=== PATIENT | male | born 1975 | race African-American/Black ===

== ENCOUNTER 2018-05-27 16:16 | Inpatient (IN) | payer SELFPAY ==
[2018-05-27 17:42] LABS: ADD MAN DIFF? NO
[2018-05-27] MEDS: LORAZEPAM 2 MG INJ IV (17:44)
[2018-05-27] MEDS: SOD CHLORIDE 0.9% 1,000 ML IV ×2 (17:44→21:11)
[2018-05-27 17:50] LABS: WHITE BLOOD COUNT 9.1 10^3/ul (4.8-10.8)
[2018-05-27 17:50] LABS: ABNORMAL IP MESSAGE 1; BASOPHILS % 0.4 % (0.0-2.0); HEMATOCRIT 42.4 % (42.0-52.0); HEMOGLOBIN 14.6 g/dl (14.0-18.0); LYMPHOCYTES # 0.5 10^3/ul (0.8-2.9); LYMPHOCYTES % 5.8 % (15.0-51.0); MEAN CORPUSCULAR HEMOGLOBIN 29.7 pg (29.0-33.0); MEAN CORPUSCULAR HGB CONC 34.4 g/dl (32.0-37.0); MEAN CORPUSCULAR VOLUME 86.4 fl (82.0-101.0); MEAN PLATELET VOLUME 9.7 fl (7.4-10.4); MONOCYTE # 0.8 10^3/ul (0.3-0.9); MONOCYTES % 8.4 % (0.0-11.0); NEUTROPHIL # 7.7 10^3/ul (1.6-7.5); PLATELET COUNT 175 10^3/UL (140-415); POSITIVE DIFF @See below; RED BLOOD COUNT 4.91 10^6/ul (4.70-6.10); RED CELL DISTRIBUTION WIDTH 14.1 % (11.5-14.5)
[2018-05-27 18:09] LABS: ALANINE AMINOTRANSFERASE 135 IU/L (13-69); ALBUMIN/GLOBULIN RATIO 0.96; ALKALINE PHOSPHATASE 87 IU/L (42-121); ANION GAP 20 (5-13); ASPARTATE AMINO TRANSFERASE 176 IU/L (15-46); BILIRUBIN,INDIRECT 0.8 mg/dl (0-1.1); BILIRUBIN,TOTAL 0.8 mg/dl (0.2-1.3); BLOOD UREA NITROGEN 9 mg/dl (7-20); CALCIUM 9.7 mg/dl (8.4-10.2); CARBON DIOXIDE 21 mmol/L (21-31); CHLORIDE 92 mmol/L (97-110); CREATININE 0.96 mg/dl (0.61-1.24); Estimated GFR > 60 mL/min (>60); GLUCOSE 152 mg/dl (70-220); POTASSIUM 3.8 mmol/L (3.5-5.1); SODIUM 133 mmol/L (135-144); TOTAL PROTEIN 10.2 g/dl (6.1-8.1)
[2018-05-27 18:28] LABS: TROPONIN-I < 0.012 ng/ml (0.000-0.120)
[2018-05-27 18:36] LABS: ETHANOL < 10.0 mg/dl
[2018-05-27] MEDS ORDERED: ACETAMINOPHEN 325 MG TAB PO (19:00)
[2018-05-27] MEDS ORDERED: LORAZEPAM 2 MG INJ IV (19:00)
[2018-05-27] MEDS: LORAZEPAM 1 MG TAB PO (19:53)
[2018-05-27 20:25] LABS: ADD UMIC YES; UR ASCORBIC ACID NEGATIVE (NEGATIVE); UR BACTERIA FEW /HPF (NONE SEEN); UR BILIRUBIN (Dip) NEGATIVE (NEGATIVE); UR BLOOD (Dip) 1+ mg/dL (NEGATIVE); UR CLARITY SLIGHTLY CLOUDY (CLEAR); UR COLOR YELLOW (YELLOW); UR GLUCOSE (Dip) NEGATIVE (NEGATIVE); UR KETONES (Dip) 1+ mg/dL (NEGATIVE); UR LEUKOCYTE ESTERASE (Dip) NEGATIVE Leu/ul (NEGATIVE); UR MUCUS FEW /HPF (NONE SEEN); UR NITRITE (Dip) NEGATIVE (NEGATIVE); UR RBC 1 /HPF (0-5); UR SPECIFIC GRAVITY (Dip) 1.016 (1.003-1.030); UR TOTAL PROTEIN (Dip) 3+ mg/dl (NEGATIVE); UR UROBILINOGEN (Dip) NEGATIVE (NEGATIVE); UR WBC 2 /HPF (0-5)
[2018-05-27] MEDS ORDERED: CHLORDIAZEPOXIDE 25 MG CAP PO (21:00)
[2018-05-27 21:17] LABS: AMPHETAMINE/METHAMPHETAMINE NEGATIVE (NEGATIVE); BARBITURATES NEGATIVE (NEGATIVE); BENZODIAZEPINES NEGATIVE (NEGATIVE); CANNABINOIDS NEGATIVE (NEGATIVE); COCAINE NEGATIVE (NEGATIVE); OPIATES NEGATIVE (NEGATIVE)
[2018-05-28] MEDS: ONDANSETRON 4 MG INJ IV ×3 (00:23→20:02)
[2018-05-28] MEDS: LORAZEPAM 1 MG TAB PO ×5 (00:55→20:02)
[2018-05-28] MEDS: MULTIVITAMINS 10 ML, THIAMINE 100 MG, FOLIC ACID 1 MG in SOD CHLORIDE 0.9% 1,000 ML IVPB (08:28)
[2018-05-28] MEDS: SOD CHLORIDE 0.9% 1,000 ML IV ×2 (08:29→17:19)
[2018-05-28 08:33] LABS: ADD MAN DIFF? NO
[2018-05-28 08:36] LABS: WHITE BLOOD COUNT 5.3 10^3/ul (4.8-10.8)
[2018-05-28 08:36] LABS: BASOPHILS % 0.2 % (0.0-2.0); EOSINOPHILS % 0.2 % (0.0-7.0); HEMATOCRIT 38.1 % (42.0-52.0); LYMPHOCYTES # 0.7 10^3/ul (0.8-2.9); LYMPHOCYTES % 12.8 % (15.0-51.0); MEAN CORPUSCULAR HGB CONC 34.1 g/dl (32.0-37.0); MEAN CORPUSCULAR VOLUME 87.8 fl (82.0-101.0); MEAN PLATELET VOLUME 10.5 fl (7.4-10.4); MONOCYTE # 0.5 10^3/ul (0.3-0.9); MONOCYTES % 9.8 % (0.0-11.0); NEUTROPHIL # 4.1 10^3/ul (1.6-7.5); NEUTROPHILS % 76.6 % (39.0-77.0); PLATELET COUNT 152 10^3/UL (140-415); RED BLOOD COUNT 4.34 10^6/ul (4.70-6.10); RED CELL DISTRIBUTION WIDTH 14.2 % (11.5-14.5)
[2018-05-28 09:11] LABS: ALANINE AMINOTRANSFERASE 126 IU/L (13-69); ALBUMIN 4.4 g/dl (3.3-4.9); ALBUMIN/GLOBULIN RATIO 1.15; ALKALINE PHOSPHATASE 62 IU/L (42-121); ANION GAP 13 (5-13); ASPARTATE AMINO TRANSFERASE 213 IU/L (15-46); BILIRUBIN,INDIRECT 0.8 mg/dl (0-1.1); BILIRUBIN,TOTAL 0.8 mg/dl (0.2-1.3); BLOOD UREA NITROGEN 9 mg/dl (7-20); CARBON DIOXIDE 25 mmol/L (21-31); CHLORIDE 97 mmol/L (97-110); CREATININE 0.95 mg/dl (0.61-1.24); Estimated GFR > 60 mL/min (>60); GLUCOSE 104 mg/dl (70-220); POTASSIUM 3.8 mmol/L (3.5-5.1); SODIUM 135 mmol/L (135-144); TOTAL PROTEIN 8.2 g/dl (6.1-8.1)
[2018-05-28] MEDS: INFLUENZA VIRUS VACCINE 0.5 ML (DISPENSING) IM* (10:24)
[2018-05-28] MEDS: THIAMINE 100 MG TAB PO (12:30)
[2018-05-28] MEDS: LORAZEPAM 2 MG INJ IV (16:46)
[2018-05-29] MEDS: GUAIFENESIN/CODEINE 5ML CUP PO ×2 (01:03→20:35)
[2018-05-29] MEDS: SOD CHLORIDE 0.9% 1,000 ML IV ×2 (03:27→15:31)
[2018-05-29 05:15] LABS: ADD MAN DIFF? NO
[2018-05-29 05:20] LABS: WHITE BLOOD COUNT 5.6 10^3/ul (4.8-10.8)
[2018-05-29 05:20] LABS: BASOPHILS % 0.4 % (0.0-2.0); EOSINOPHILS % 0.5 % (0.0-7.0); HEMATOCRIT 35.8 % (42.0-52.0); HEMOGLOBIN 12.3 g/dl (14.0-18.0); LYMPHOCYTES # 0.8 10^3/ul (0.8-2.9); LYMPHOCYTES % 13.4 % (15.0-51.0); MEAN CORPUSCULAR HEMOGLOBIN 30.4 pg (29.0-33.0); MEAN CORPUSCULAR HGB CONC 34.4 g/dl (32.0-37.0); MEAN CORPUSCULAR VOLUME 88.6 fl (82.0-101.0); MEAN PLATELET VOLUME 10.2 fl (7.4-10.4); MONOCYTE # 0.3 10^3/ul (0.3-0.9); MONOCYTES % 4.5 % (0.0-11.0); NEUTROPHIL # 4.6 10^3/ul (1.6-7.5); PLATELET COUNT 122 10^3/UL (140-415); RED BLOOD COUNT 4.04 10^6/ul (4.70-6.10); RED CELL DISTRIBUTION WIDTH 14.3 % (11.5-14.5)
[2018-05-29 05:29] LABS: HEMOGLOBIN A1C 5.4 % (0-5.9)
[2018-05-29 05:44] LABS: ANION GAP 11 (5-13); BLOOD UREA NITROGEN 7 mg/dl (7-20); CALCIUM 8.5 mg/dl (8.4-10.2); CARBON DIOXIDE 24 mmol/L (21-31); CHLORIDE 103 mmol/L (97-110); CREATININE 0.91 mg/dl (0.61-1.24); Estimated GFR > 60 mL/min (>60); GLUCOSE 92 mg/dl (70-220); MAGNESIUM 1.5 mg/dl (1.7-2.5); PHOSPHORUS 3.8 mg/dl (2.5-4.9); POTASSIUM 3.5 mmol/L (3.5-5.1); SODIUM 138 mmol/L (135-144)
[2018-05-29 05:50] LABS: TROPONIN-I < 0.012 ng/ml (0.000-0.120)
[2018-05-29 05:58] LABS: INR 0.99; PROTIME 13.2 Sec (11.9-14.9)
[2018-05-29] MEDS: THIAMINE 100 MG TAB PO (07:11)
[2018-05-29] MEDS: LORAZEPAM 1 MG TAB PO ×3 (08:09→20:15)
[2018-05-29] MEDS: FAMOTIDINE 20 MG TAB PO (08:10)
[2018-05-29] MEDS: MULTIVITAMINS 10 ML, THIAMINE 100 MG, FOLIC ACID 1 MG in SOD CHLORIDE 0.9% 1,000 ML IVPB (08:10)
[2018-05-29] MEDS ORDERED: LORAZEPAM 2 MG INJ IV (11:00)
[2018-05-29] MEDS: CHLORDIAZEPOXIDE 25 MG CAP PO ×3 (11:32→20:26)
[2018-05-29] MEDS: MAGNESIUM SULFATE 3 GM in DEXTROSE 5% 100 ML IVPB (13:07)
[2018-05-30] MEDS: CHLORDIAZEPOXIDE 25 MG CAP PO ×7 (00:01→23:20)
[2018-05-30] MEDS: SOD CHLORIDE 0.9% 1,000 ML IV ×4 (02:15→19:50)
[2018-05-30 05:48] LABS: ADD MAN DIFF? NO
[2018-05-30 05:50] LABS: BASOPHILS % 0.2 % (0.0-2.0); EOSINOPHILS # 0.1 10^3/ul (0.0-0.5); EOSINOPHILS % 2.2 % (0.0-7.0); HEMATOCRIT 36.3 % (42.0-52.0); HEMOGLOBIN 12.2 g/dl (14.0-18.0); LYMPHOCYTES # 0.7 10^3/ul (0.8-2.9); LYMPHOCYTES % 14.9 % (15.0-51.0); MEAN CORPUSCULAR HEMOGLOBIN 30.5 pg (29.0-33.0); MEAN CORPUSCULAR HGB CONC 33.6 g/dl (32.0-37.0); MEAN CORPUSCULAR VOLUME 90.8 fl (82.0-101.0); MEAN PLATELET VOLUME 10.6 fl (7.4-10.4); MONOCYTE # 0.4 10^3/ul (0.3-0.9); MONOCYTES % 9.8 % (0.0-11.0); NEUTROPHIL # 3.3 10^3/ul (1.6-7.5); NEUTROPHILS % 72.5 % (39.0-77.0); PLATELET COUNT 125 10^3/UL (140-415); POSITIVE DIFF @See below; RED CELL DISTRIBUTION WIDTH 14.4 % (11.5-14.5)
[2018-05-30 05:50] LABS: WHITE BLOOD COUNT 4.5 10^3/ul (4.8-10.8)
[2018-05-30 06:22] LABS: ALANINE AMINOTRANSFERASE 313 IU/L (13-69); ALBUMIN 3.8 g/dl (3.3-4.9); ALBUMIN/GLOBULIN RATIO 1.08; ALKALINE PHOSPHATASE 62 IU/L (42-121); ANION GAP 11 (5-13); ASPARTATE AMINO TRANSFERASE 470 IU/L (15-46); BILIRUBIN,INDIRECT 0.7 mg/dl (0-1.1); BILIRUBIN,TOTAL 0.7 mg/dl (0.2-1.3); BLOOD UREA NITROGEN 7 mg/dl (7-20); CALCIUM 8.3 mg/dl (8.4-10.2); CARBON DIOXIDE 26 mmol/L (21-31); CHLORIDE 103 mmol/L (97-110); Estimated GFR > 60 mL/min (>60); GLUCOSE 91 mg/dl (70-220); MAGNESIUM 1.8 mg/dl (1.7-2.5); PHOSPHORUS 4.1 mg/dl (2.5-4.9); POTASSIUM 3.6 mmol/L (3.5-5.1); SODIUM 140 mmol/L (135-144); TOTAL PROTEIN 7.3 g/dl (6.1-8.1)
[2018-05-30] MEDS: THIAMINE 100 MG TAB PO (07:48)
[2018-05-30] MEDS: FAMOTIDINE 20 MG TAB PO (07:49)
[2018-05-30] MEDS: MULTIVITAMINS 10 ML, THIAMINE 100 MG, FOLIC ACID 1 MG in SOD CHLORIDE 0.9% 1,000 ML IVPB (07:50)
[2018-05-30] MEDS: LORAZEPAM 1 MG TAB PO ×3 (07:50→21:57)
[2018-05-30] MEDS: POTASSIUM CHLORIDE 20 MEQ POWDER FOR ORAL SOLN PO ×2 (11:10→21:58)
[2018-05-30] MEDS: ENOXAPARIN 40 MG/0.4 ML SYG SC (11:24)
[2018-05-30] MEDS: MAGNESIUM SULFATE 3 GM in DEXTROSE 5% 100 ML IVPB (12:44)
[2018-05-31] MEDS: CHLORDIAZEPOXIDE 25 MG CAP PO ×4 (03:00→15:00)
[2018-05-31] MEDS: LORAZEPAM 1 MG TAB PO ×2 (09:08→12:51)
[2018-05-31] MEDS: FAMOTIDINE 20 MG TAB PO (09:08)
[2018-05-31] MEDS: MULTIVITAMINS 10 ML, THIAMINE 100 MG, FOLIC ACID 1 MG in SOD CHLORIDE 0.9% 1,000 ML IVPB (09:08)
[2018-05-31] MEDS: THIAMINE 100 MG TAB PO (09:08)
[2018-05-31] MEDS: POTASSIUM CHLORIDE 20 MEQ POWDER FOR ORAL SOLN PO (09:09)
[2018-05-31] MEDS: ENOXAPARIN 40 MG/0.4 ML SYG SC (10:10)
== END 2018-05-31 15:45 | disposition home or self-care (01) | DRG 897 ==
LOC: E/R 16:16 → 5EC 05-30 14:12 → 6WM 18:54
DX: F10.231 Alcohol dependence with withdrawal delirium (principal); Z68.41 Body mass index [BMI] 40.0-44.9, adult; Y90.0 Blood alcohol level of less than 20 mg/100 ml; F32.9 Major depressive disorder, single episode, unspecified; I10 Essential (primary) hypertension; K70.9 Alcoholic liver disease, unspecified; F10.20 Alcohol dependence, uncomplicated; Z87.891 Personal history of nicotine dependence
CPT/HCPCS: 36415; 71045; 76700; 80048; 80053; 80307; 81001; 83036; 83735; 84100; 84443; 84484; 85025; 85610; 90686; 93005; 96374; 99291-25; G0378